=== PATIENT | male | born 1985 | race Caucasian/White ===

== ENCOUNTER 2019-05-14 20:47 | Emergency (ER) | payer OTHER ==
[~2019-05-14] VITALS: Ht 180.3 cm; Wt 111.1 kg
[2019-05-15] MEDS ORDERED: ZITHROMAX500 MG PO (01:23)
[2019-05-15] MEDS ORDERED: ZYNCOF 20-400120 ML PO (01:23)
== END 2019-05-15 01:44 | disposition home or self-care (01) ==
LOC: ER 20:47
DX: B34.9 Viral infection, unspecified (principal); B96.0 Mycoplasma pneumoniae [M. pneumoniae] as the cause of diseases classified elsewhere